=== PATIENT | female | born 1995 | race African-American/Black ===

== ENCOUNTER 2019-01-21 09:11 | Day surgery (SDC) | payer BC, OTHER ==
[~2019-01-21 09:11] MED LIST: LIDOCAINE 2% PF 5 ML VIAL. ONE; PROPOFOL 20 ML IV ONE; fentaNYL PF VIAL 100 MCG/2 ML VIAL ONE
[2019-01-21] MEDS ORDERED: ALBU2.5V8 INH (09:43)
[2019-01-21] MEDS ORDERED: ACETAMINOPHEN 500 MG TABLET PO ONE (10:00)
[2019-01-21] MEDS ORDERED: ceFAZolin 2GM PREMIX 2 GM/50 ML BAG IV ONE (10:00)
[2019-01-21] MEDS ORDERED: IV RINGERS,LACTATED 1000ML 1,000 ML IV SCH (10:00)
[2019-01-21] MEDS ORDERED: BUPIVACAINE-EPI 0.25%-1:200000 MPF 30 ML VIAL. INJ ONE (10:00)
[2019-01-21] MEDS ORDERED: DEXAMETHASONE SOD PHOS 4 MG/ML VIAL ONE (10:46)
[2019-01-21] MEDS ORDERED: ONDANSETRON PF 4 MG/2 ML VIAL. ONE (10:46)
[2019-01-21] MEDS ORDERED: SEVOFLURANE 16 TO 30 MINUTES. IH ONE (10:46)
[2019-01-21] MEDS ORDERED: PROPOFOL 20 ML IV ONE (10:50)
[2019-01-21] MEDS ORDERED: PHENYLEPHRINE in 0.9% NACL PF 1 MG/10 ML SYRINGE. IV ONE (10:54)
--- NOTE | 2019-01-21 11:15 | PDOC4 ---
Operative Note Operative Note Date: 01/21/2019 Preoperative diagnosis: Back abscess Postoperative diagnosis: Same Procedure: Incision and drainage of abscess Surgeon: Nir Specimen: Cultures Dictation: Patient is 23-year-old female complaining of a painful area on her mid back had previously been seen in emergency department where she had an incision and drainage done a couple days ago but has been getting worse since that time. Procedure of incision and drainage was explained to the patient detail risk benefits were also discussed including bleeding infection alternatives to this procedure also discussed with the patient who seemed to understand and gave both verbal and written consent to have the procedure performed per patient was taken to the operating room placed in supine position general anesthesia was initiated once patient was sleep and intubated she was placed and right decubitus positioning area on her left back was prepped and draped usual sterile fashion using ChloraPrep and area was incised with 11 blade scalpel copious metastases. Material were expressed proximally 20 mL wound was then irrigated with saline. The wound was then packed with quarter inch iodoform Nu Gauze and dressed with 4 x 4 and Medipore tape cultures were taken of the purulent material. Patient was awakened and asked bated operating room taken to recovery in stable condition all sponge needle counts listed as correct estimated blood loss 5 mL PAMELA BRYSON MD Jan 21, 2019 11:15
--- NOTE | 2019-01-21 11:17 | DISCH ---
DISCHARGE INSTRUCTIONS Condition on Discharge Condition on Discharge: Stable Activity After Discharge Activity Instructions for Disc: Activity as tolerated Diet after Discharge Diet after Discharge: Regular Wound Incision Care Other wound/incision instructi: change packing daily Contacting the [facility] after DC Call your doctor for: If your condition worsens Follow-Up Follow up with: Dr. Bryson in 1 week PAMELA BRYSON MD Jan 21, 2019 11:17
[2019-01-21] MEDS ORDERED: HYDR-3164 PO (11:32)
[2019-01-21] MEDS ORDERED: SULF1TAB24 PO (11:33)
[2019-01-21] MEDS ORDERED: HYDROcodone/APAP 5/325MG 1 TAB TABLET ONE (11:43)
[2019-01-21] MEDS ORDERED: HYDROcodone/APAP 5/325MG 1 TAB TABLET PO ONE (11:45)
[2019-01-21 11:50] VITALS: BP 119/62
== END 2019-01-21 12:20 | disposition home or self-care (01) ==
LOC: SURG 09:11
PROVIDERS: ATTEND Surgery
DX: L02.212 Cutaneous abscess of back [any part, except buttock and flank] (principal); G43.909 Migraine, unspecified, not intractable, without status migrainosus; K31.9 Disease of stomach and duodenum, unspecified; F41.9 Anxiety disorder, unspecified; E66.01 Morbid (severe) obesity due to excess calories; Z68.41 Body mass index [BMI] 40.0-44.9, adult; Z72.89 Other problems related to lifestyle; Z87.39 Personal history of other diseases of the musculoskeletal system and connective tissue
CPT/HCPCS: 10060; 81025; 87071; 87075; A7015; J0696; J1100; J2001; J2370; J2405; J2704; J3010

== ENCOUNTER 2020-12-01 12:54 | Emergency (ER) | payer SELFPAY ==
[~2020-12-01] VITALS: Ht 154.9 cm; Wt 108.2 kg
[~2020-12-01 12:54] MED LIST changes: +ALBU2.5V8 INH; +HYDR-3164 PO; -LIDOCAINE 2% PF 5 ML VIAL. ONE; -PROPOFOL 20 ML IV ONE; +SULF1TAB24 PO; -fentaNYL PF VIAL 100 MCG/2 ML VIAL ONE
[2020-12-01] MEDS ORDERED: IBUPROFEN 200 MG TABLET. PO ONE (15:30)
[2020-12-01] MEDS ORDERED: ACETAMINOPHEN 500 MG TABLET PO ONE (15:30)
[2020-12-01 16:12] LABS: BILIRUBIN,URINE SMALL (NEG); COLOR,URINE YELLOW; NITRITE,URINE NEGATIVE (NEG); PH,URINE 6.5 (<5.0-8.0); PROTEIN,URINE 100 mg/dL (NEG-TRACE)
[2020-12-01 16:18] LABS: CLARITY,URINE CLEAR
[2020-12-01 16:21] LABS: BACTERIA,URINE FEW /HPF (0-FEW); RBC,URINE 0 /HPF (0-2)
--- NOTE | 2020-12-01 16:47 | RAD ---
Exam: Chest one view INDICATION: Covid positive with cough TECHNIQUE: Frontal view of the chest Comparisons: None FINDINGS: The cardiomediastinal silhouette and pulmonary vessels are within normal limits. Extensive patchy by lateral airspace disease. No pleural effusion. IMPRESSION: Extensive patchy bilateral airspace disease Electronically signed by: Artem Peña MD (12/01/2020 4:44 PM) CEE
--- NOTE | 2020-12-01 17:19 | PHYS DOC ---
Past Medical History Past Medical History: Asthma Past Surgical History: Other Additional Past Surgical Histo: back surgery Smoking Status: Never Smoker Alcohol Use: Occasionally Drug Use: None General Adult EDM: Chief Complaint: FLU SYMPTOM HPI: HPI: Patient is a 25 year old female presents to the emergency department complaining of ongoing cough with fevers and chills after being diagnosed with a Covid virus this past Friday. Patient states she does want something to help her feel better. Patient denies chest pain, nausea, vomiting, diarrhea, or constipation. Patient reports she has not been taking any Tylenol and/or Motrin for her fevers or chills at home. Patient denies any other physical complaints or physical concerns. Review of Systems: Review of Systems: 14 body systems of review of systems have been reviewed. See HPI for pertinent positives and negative responses, otherwise all other systems are negative, nonpertinent or noncontributory. Constitutional: Negative except as outlined in HPI above. Skin: Negative except as outlined in HPI above. Eyes: Negative except as outlined in HPI above. HENT: Negative except as outlined in HPI above. Respiratory: Negative except as outlined in HPI above. Cardiovascular: Negative except as outlined in HPI above. GI: Negative except as outlined in HPI above. : Negative except as outlined in HPI above. Musculoskeletal: Negative except as outlined in HPI above. Integument: Negative except as outlined in HPI above. Neurologic: Negative except as outlined in HPI above. Endocrine: Negative except as outlined in HPI above. Lymphatic: Negative except as outlined in HPI above. Psychiatric: Negative except as outlined in HPI above. Heart Score: C/O Chest Pain: No Risk Factors: Risk Factors: DM, Current or recent (<one month) smoker, HTN, HLP, family history of CAD, obesity. Risk Scores: Score 0 - 3: 2.5% MACE over next 6 weeks - Discharge Home Score 4 - 6: 20.3% MACE over next 6 weeks - Admit for Clinical Observation Score 7 - 10: 72.7% MACE over next 6 weeks - Early Invasive Strategies Current Medications: Current Medications Medications (Trade) Dose Ordered Sig/Jesús Start Time Stop Time Status Last Admin Dose Admin Acetaminophen (Tylenol) 1,000 mg 1X ONCE 12/01/20 15:30 12/01/20 15:31 DC 12/01/20 15:30 1,000 MG Ibuprofen (Motrin) 600 mg 1X ONCE 12/01/20 15:30 12/01/20 15:31 DC 12/01/20 15:30 600 MG Allergies: Allergies: Allergies Coded Allergies Type Severity Reaction Last Updated Verified cashew nut Allergy Severe Anaphylaxis 12/01/20 Yes peanut Allergy Severe anaphylaxis 12/01/20 Yes pistachio nut Allergy Severe Anaphylaxis 12/01/20 Yes shellfish derived Allergy Severe Anaphylaxis 01/21/19 Yes I S O L A T I O N *CONTACT* Allergy Unknown 01/26/19 Yes Physical Exam: PE: Constitutional: Well developed, well nourished, no acute distress, non-toxic appearance. 25-year-old female in no apparent distress. HENT: Normocephalic, atraumatic. Eyes: Conjunctiva normal, no discharge. Neck: Normal range of motion, no stridor. Cardiovascular: No cyanosis appreciated, distal cap refill less than 2 seconds. Heart rate tachycardic during physical exam, rate 102 bpm. Lungs & Thorax: Patient is in no respiratory distress, no audible adventitious lung sounds appreciated. Lung sounds clear to auscultate all lung harrison. Patient's O2 sat 99% on room air. Abdomen: Nontender, no abnormalities noted. Skin: Warm, dry, no erythema, no rash. Back: No tenderness, no deformities. Extremities: No tenderness, no cyanosis, no clubbing, ROM intact, no edema. Neurologic: Alert and oriented X 3, normal motor function, normal sensory function, no focal deficits noted. Psychologic: Affect normal, judgement normal, mood normal. Current Patient Data: Labs: Laboratory Tests Test 12/01/20 15:51 12/01/20 16:07 Urine Collection Type Unknown Urine Color Yellow Urine Clarity Clear Urine pH 6.5 (<5.0-8.0) Urine Specific [place] 1.020 (1.000-1.030) Urine Protein 100 mg/dL (NEG-TRACE) Urine Glucose (UA) Negative mg/dL (NEG) Urine Ketones (Stick) >=80 mg/dL (NEG) Urine Blood Negative (NEG) Urine Nitrite Negative (NEG) Urine Bilirubin Small (NEG) Urine Urobilinogen Dipstick 1.0 mg/dL (0.2 mg/dL) Urine Leukocyte Esterase Negative (NEG) Urine RBC 0 /HPF (0-2) Urine WBC 5-10 /HPF (0-4) Urine Squamous Epithelial Cells Mod /LPF Urine Bacteria Few /HPF (0-FEW) Urine Mucus Mod /LPF POC Urine HCG, Qualitative Hcg negative (Negative) Vital Signs: Vital Signs Date Time Temp Pulse Resp B/P (MAP) Pulse Ox O2 Delivery O2 Flow Rate FiO2 12/01/20 14:15 102.4 108 28 133/61 (81) 93 Room Air 102.4 EKG: EKG: EKG performed at 1424 by ED nursing staff shows a sinus tachycardia without other ectopy heart rate 107 bpm, PA interval 0.116, QTc interval 0.421, no acute STEMI, no ACS, no acute ischemia appreciated, EKG interpreted by ED attending physician Dr. Hayes Radiology/Procedures: Radiology/Procedures: PATIENT: GENE HANNAH LACCOUNT: [id number] : 1995 LOCATION: ER AGE: 25 SEX: F EXAM STATUS: REG ER ORD. PHYSICIAN: GHASSAN RENEE APRN REASON: COVID POSTITVE WITH COUGH PROCEDURE: CHEST AP ONLY Exam: Chest one view INDICATION: Covid positive with cough TECHNIQUE: Frontal view of the chest Comparisons: None FINDINGS: The cardiomediastinal silhouette and pulmonary vessels are within normal limits. Extensive patchy by lateral airspace disease. No pleural effusion. IMPRESSION: Extensive patchy bilateral airspace disease Electronically signed by: Artem Peña MD (12/01/2020 4:44 PM) [facility] Course & Med Decision Making: Course & Med Decision Making Pertinent Labs and Imaging studies reviewed. (See chart for details) 25-year-old female, vital signs reviewed, presents emergency department complaining of ongoing COVID-19 virus symptoms. Physical examination consistent with COVID-19 virus patient. Order chest x-ray to evaluate for atypical pneumonia, patient has not hypoxic, patient is in no apparent distress. Patient's oral temperature 102.9 upon arrival by ED triage, during physical examination patient's oral temperature 101.1, will give Tylenol and Motrin p.o. Patient's chest x-ray concerning for atypical pneumonia, will draw basic labs to rule out systemic infectious process. Patient CBC and CMP unremarkable, patient's lactic acid within normal limits, patient was treated with 500 mg IV Zithromax while in ED. Discussed findings with patient, will send patient home with oral regimen of Zithromax, recommended [id number] Tylenol Motrin for returning fevers, chills, body aches and pains. Discussed with patient increasing fluid intake during her COVID-19 virus symptoms. Patient is amenable to ED discharge planning. Discussed with the patient all findings and diagnostic testing as well as the need to follow-up with their primary care provider for further evaluation and treatment or return to the ED if any new or worsening symptoms. Strict return precautions were also discussed at length, the patient voiced understanding and agreement with the discharge planning. The patient was nontoxic in appearance, in no apparent distress, and hemodynamically stable at the time of disposition. Dragon Disclaimer: Dragon Disclaimer: This electronic medical record was generated, in whole or in part, using a voice recognition dictation system. Departure Departure Impression: Primary Impression: Atypical pneumonia Additional Impression: COVID-19 virus infection Disposition: HOME / SELF CARE / HOMELESS Condition: GOOD Referrals: GHASSAN CAMPBELL MD (PCP) Patient Instructions: Pneumonia, Adult Additional Instructions: You were seen in emergency department today for COVID-19 virus symptoms. A extensive cardiorespiratory work-up was performed today, your heart is not under any stress that would require admission to the hospital, your chest x-ray did reveal an atypical pneumonia in which you were treated today with an IV antibiotic called Zithromax. Your blood lab work did not show any concerning findings that would warrant admission to the hospital today. Therefore I am sending you home with a prescription for Zithromax antibiotic to treat your pneumonia. As we discussed at length, please increase your fluid intake during your COVID-19 virus symptoms and infection. Please return the emergency department for worsening symptoms or other concerns. Thank you for visiting our Emergency Department. It was a pleasure taking care of you today in the emergency department and we appreciate you trusting us with your care. If any additional problems come up don't hesitate to return to visit us. Please follow up with your primary care provider so they can plan additional care if needed and know about the problem that you had. If symptoms worsen come back to the Emergency Department. Any concerning symptoms that start such as chest pain, shortness of air, weakness or numbness on one side of the body, running high fevers or any other concerning symptoms return to the ER. EMERGENCY DEPARTMENT GENERAL DISCHARGE INSTRUCTIONS Thank you for coming to [facility] Emergency Department (ED) today and trusting us with you care. We trust that you had a positive experience in our Emergency Department. If you wish to speak to the department management, you may call the Director at [phone]. YOUR FOLLOW UP INSTRUCTIONS ARE FOLLOWS: 1. Do you have a private Doctor? If you do not have a private doctor, please ask for a resource list of physicians or clinics that may be able to assist you with follow up care. 2. The Emergency Physicain has interpreted your x-rays. The X-Ray specialist will also review them. If there is a change in the findings, you will be notified in 48 hours when at all possible. 3. A lab test or culture has been done, your results will be reviewed and you will be notified if you need a change in treatment. ADDITIONAL INSTRUCTIONS AND INFORMATION: 1. Your care today has been supervised by a physician who is specially trained in emergency care. Many problems require more than one evaluation for a complete diagnosis and treatment. We recommend that you schedule your follow up appointment as recommended to ensure complete treatment of you illness or injury. If you are unable to obtain follow up care and continue to have a problem, or if your condition worsens, we recommend that you return to the ED. 2. We are not able to safely determine your condition over the phone nor are we able to give sound medical advice over the phone. For these safety reasons, if you call for medical advice we will ask you to come to the ED for further evaluation. 3. If you have any questions regarding these discharge instructions please call the ED at [phone]. SAFETY INFORMATION: In the interest of safety, wellness, and injury prevention; we encourage you to wear your sealbelt, if you smoke; quite smoking, and we encourage family to use a protective helmet for bicycling and other sporting events that present an increased risk for head injury. IF YOUR SYMPTOMS WORSEN OR NEW SYMPTOMS DEVELOP, OR YOU HAVE CONCERNS ABOUT YOUR CONDITION; OR IF YOUR CONDITION WORSENS WHILE YOU ARE WAITING FOR YOUR FOLLOW UP APPOINT MENT; EITHER CONTACT YOUR PRIMARY CARE DOCTOR, THE PHYSICIAN WHOSE NAME AND NUMBER YOU WERE GIVEN, OR RETURN TO THE ED IMMEDIATELY. You have been tested for or diagnosed with COVID-19. It is an infection caused by a new type of coronavirus. COVID-19 will cause cold-like or mild flu symptoms in most. It can cause more severe symptoms like problems breathing in some. There is no treatment for COVID-19. The body will clear the infection over time. Self-care will help to ease discomfort. Steps to Take: Self-Care Rest as needed. Healthy habits may help you feel better. Steps include: Choose healthy foods including fruits and vegetables. Drink water throughout the day. Get plenty of sleep each night. If you smoke, try to quit. It may ease breathing. Avoid alcohol. Keep Others Healthy The virus can spread to others. Droplets are released every time you sneeze or cough. The droplets can get into the mouth, nose, or eyes of people near you and lead to infection. To lower the chances of spreading COVID-19 to others: Stay at home until your doctor has said it is safe to leave. If you tested positive this will mean staying isolated until both of the following are true: At least 7 days have passed since the start of illness. You are free of fever for at least 72 hours without the use of medicine. During this time: - Avoid public areas, events, or transportation. Do not return to work or school until your doctor has said it is safe to do so. - Call ahead if you need to go to a medical center. Let them know you may have COVID-19. It will help them guide you where to go. They may also ask you to wear a facemask when you come to the office. - If you call for emergency medical services, let them know you may have COVID- 19. While at home: - Try to avoid close contact with others. Stay about 6 feet away. - If possible, spend most of your time in a separate room from others. - Use a face mask if you will be in close contact with others such as sharing a room or vehicle. - Have someone wipe down common surfaces in the home. Use household edge banding machine offbearer every day on areas like doorknobs, counters, or sinks. - Cough or sneeze into a tissue. Throw the tissue away right after use. If a tissue is not available, cough or sneeze into your elbow. - Wash your hands often. Wash them after sneezing or coughing. Use soap and water and wash for at least 20 seconds. Alcohol based hand vat cleaner can be used if soap and water is not available. - Do not prepare food for others. Avoid sharing personal items like forks, spoons, or toothbrushes. - Avoid close contact with pets while you are sick. There is no evidence of the virus passing to pets. This is a safety step until more is known about this virus. Isolation can be frustrating. Social interaction can help. Keep in touch with friends and family through phone and tech options. You can still interact with others in your home, just keep a safe distance of about 6 feet. Follow-up: Your doctors office will check in with you to see if there are any changes in your health. You may be asked to keep track of symptoms to share with them. They will also let you know when you are clear to be in public again. Problems to Look Out For: Contact your doctor if your recovery is not going as you expect. Get emergency care if you have problems such as: - Trouble breathing - Nonstop chest pain or pressure - Changes in awareness, confusion, or problems waking - Lips or face have bluish color - Worsening of symptoms If you think you have an emergency, call for emergency medical services right away. As taken from [facility] Ondansetron (ONDANSETRON ODT) 4 Mg Tab.rapdis 1 TAB PO PRN Q6-8HRS for nausea, #16 TAB 0 Refills Prov: GHASSAN RENEE APRN 12/01/20 Azithromycin (ZITHROMAX) 250 Mg Tablet 1 PKG PO UD for atypical pneumonia, #6 TAB 0 Refills Prov: GHASSAN RENEE APRN 12/01/20 GHASSAN RENEE APRN Dec 01, 2020 17:19
--- NOTE | 2020-12-01 17:36 | EKG ---
[facility] [address] [place] [address] Test Date: 2020-12-01 Test Time: 14:24:46 Pat Name: GENE HANNAH Department: Room: Gender: F Admitted Attorneys: : 1995 Requested By: GHASSAN RENEE Order Number: [id number] Reading MD: Measurements Intervals [place] Rate: 107 P: 38 LA: 116 QRS: 34 QRSD: 60 T: 54 QT: 316 QTc: 421 Interpretive Statements SINUS TACHYCARDIA OTHERWISE NORMAL ECG RI6.02 No previous ECG available for comparison
[2020-12-01] MEDS ORDERED: AZITHRMYCN 500MG IVPB FOR OMNI 250 ML IV ONE (18:15)
[2020-12-01] MEDS ORDERED: IV NORMAL SALINE 1000ML BAG 1,000 ML IV ONE (18:30)
[2020-12-01 18:48] LABS: BASO % 0 % (0-3); EOS % 0 % (0-3); HEMATOCRIT 39.8 % (36.0-47.0); HEMOGLOBIN 13.6 g/dL (12.0-15.5); LYMPH # 0.5 x10^3/uL (1.0-4.8); LYMPH % 10 % (24-48); MEAN CORPUSCULAR HEMOGLOBIN 28 pg (25-35); MEAN CORPUSCULAR HGB CONC 34 g/dL (31-37); MEAN CORPUSCULAR VOLUME 82 fL (79-100); MONO # 0.4 x10^3/uL (0.0-1.1); MONO % 8 % (0-9); NEUT # 4.5 x10^3/uL (1.8-7.7); NEUT % 82 % (31-73); PLATELET COUNT 170 x10^3/uL (140-400); RED BLOOD COUNT 4.84 x10^6/uL (3.50-5.40); RED CELL DISTRIBUTION WIDTH 13.8 % (11.5-14.5); WHITE BLOOD COUNT 5.5 x10^3/uL (4.0-11.0)
[2020-12-01 19:00] LABS: CALCIUM 8.5 mg/dL (8.5-10.1); CREATININE 1.2 mg/dL (0.6-1.0); GFR 65.7; POTASSIUM 3.9 mmol/L (3.5-5.1)
[2020-12-01 19:15] LABS: ALBUMIN 2.6 g/dL (3.4-5.0); ALBUMIN/GLOBULIN RATIO 0.7 (1.0-1.7); TOTAL BILIRUBIN 0.3 mg/dL (0.2-1.0); TOTAL PROTEIN 6.3 g/dL (6.4-8.2)
[2020-12-01 20:15] VITALS: BP 114/61
[2020-12-01] MEDS ORDERED: ONDA4TAB12 PO (21:04)
[2020-12-01] MEDS ORDERED: AZIT250T PO (21:04)
== END 2020-12-01 21:24 | disposition home or self-care (01) ==
LOC: ER 12:54
DX: U07.1 COVID-19 (principal); J12.82 Pneumonia due to coronavirus disease 2019; J45.909 Unspecified asthma, uncomplicated; Z91.010 Allergy to peanuts; Z91.018 Allergy to other foods; Z91.041 Radiographic dye allergy status; Z91.013 Allergy to seafood
CPT/HCPCS: 36415; 71045; 80053; 81001; 81025; 82553; 83605; 84484; 85025; 87040; 87086; 93005; 96365; 96366; 99285; J0456; J7030

== ENCOUNTER 2021-04-12 20:48 | Emergency (ER) | payer SELFPAY ==
[~2021-04-12] VITALS: Ht 162.6 cm; Wt 127.0 kg
[~2021-04-12 20:48] MED LIST changes: +APIX5TAB PO; +AZIT250T PO; +HYDR-2761 PO; +ONDA4TAB12 PO
[2021-04-12 21:00] VITALS: BP 140/86
[2021-04-12] MEDS ORDERED: KETOROLAC 30 MG/ML VIAL. IVP ONE (22:00)
[2021-04-12] MEDS ORDERED: IV NORMAL SALINE 1000ML BAG 1,000 ML IV ONE (22:00)
--- NOTE | 2021-04-12 22:20 | PHYS DOC ---
Past Medical History Past Medical History: Asthma Additional Past Medical Histor: PE Past Surgical History: Other Additional Past Surgical Histo: Back surgery Smoking Status: Never Smoker Alcohol Use: Occasionally Drug Use: None Adult General Chief Complaint Chief Complaint: MULTIPLE COMPLAINTS HPI HPI The patient is a 25-year-old female who presents for evaluation of left lower quadrant abdominal pain, focal, sharp and nonradiating, with onset about 2 weeks ago. Discomfort is constant, worse with palpation and nothing seems to make it better. Severity about 6 out of 10 at present. She is concerned that her abdominal pain is due to a Covid infection and would like to be tested. Patient had a urinalysis done at another hospital at some point within the last week; urinalysis evidently revealed evidence of infection and the patient was told that she had a kidney infection and placed on an antibiotic. She states she never had any UTI symptoms. Patient denies fevers, nausea or vomiting, upper respiratory congestion/rhi norrhea, cough, sore throat, headache, focal or lateralizing weakness, numbness or tingling, neck stiffness/pain/meningismus, vision changes, shortness of breath or chest pain of any kind, right-sided or upper abdominal pain of any kind, flank pain, midline back pain, dysuria, hematuria, polyuria or oliguria, unusual vaginal discharge or bleeding (last menstrual period was a couple of weeks ago and was "light" per patient), changes in bowel habits aside from mild constipation over the past few days. Vital signs are appropriate here in the patient is in absolutely no acute distress. Review of Systems Review of Systems A 12 point review of systems was completed and was negative except for noted in HPI above. Current Medications Current Medications Current Medications Medications (Trade) Dose Ordered Sig/Jesús Start Time Stop Time Status Last Admin Dose Admin Ketorolac Tromethamine (Toradol 30mg Vial) 30 mg 1X ONCE 04/12/21 22:00 04/12/21 22:01 DC Sodium Chloride 1,000 ml @ 1,000 mls/hr 1X ONCE 04/12/21 22:00 04/12/21 22:59 Allergies Allergies Allergies Coded Allergies Type Severity Reaction Last Updated Verified cashew nut Allergy Severe Anaphylaxis 12/01/20 Yes peanut Allergy Severe anaphylaxis 12/01/20 Yes pistachio nut Allergy Severe Anaphylaxis 12/01/20 Yes shellfish derived Allergy Severe Anaphylaxis 10/10/19 Yes I S O L A T I O N *CONTACT* Allergy Unknown 01/26/19 Yes Physical Exam Physical Exam 25-year-old female appearing nontoxic and in no acute distress. Head is normocephalic and atraumatic. Neck is supple and nontender. No stiffness/rigidity/meningismus seen and patient ranges neck fully in all dimensions without discomfort or distress. Oropharynx is moist. Lungs are clear to auscultation at all stations. There is a normal S1 and S2 without rubs or gallops and capillary refill is appropriate, less than 2 seconds globally. Abdomen is soft, nondistended and with mild focal left lower quadrant tenderness to palpation without rebound or guarding. Skin is warm and dry and without cyanosis, clubbing or edema. Psychiatrically, the patient demonstrates appropriate mood and affect and is alert. Neurologically, cranial nerves II through XII are intact and there are no lateralizing deficits seen. Speech is normal. Language is normal. Coordination is normal. There is no dysmetria [id number] or [id number] bilaterally. Strength is 5-5 in all joints of bilateral upper and lower extremities. Sensation is intact light touch in bilateral upper and lower extremities. Patient ambulates with a narrow, steady, non-ataxic gait here in the emergency department and is alert and oriented x4. Current Patient Data Vital Signs Vital Signs Date Time Temp Pulse Resp B/P (MAP) Pulse Ox O2 Delivery O2 Flow Rate FiO2 04/12/21 21:00 98.6 74 16 140/86 (104) 98 Room Air 98.6 EKG EKG [] Radiology/Procedures Radiology/Procedures Well-appearing 25-year-old female presenting for 2 weeks of left lower quadrant abdominal pain. Currently being treated for "a kidney infection" with an unknown antibiotic. Only testing done to arrive at that diagnosis was UA. Patient is concerned that her left lower quadrant abdominal pain may be Covid. I counseled her that her symptoms are not consistent with COVID-19 infection but that I would be glad to swab her for Covid. I recommended abdominal labs, urinalysis, testing and a CT scan of the abdomen and pelvis to further evaluate her abdominal pain. Patient was in agreement with that plan. 2200: Nursing informed me that the patient is now refusing evaluation, stating she only wants the Covid test and does not want her belly pain further explored. She has been counseled, and understands, that she is at risk for decompensation, permanent disability, loss of current lifestyle and even in choosing to decline indicated evaluation. She is able to restate those risks in her own words and agrees to be wholly and solely responsible for them in their entirety. Even though she has chosen to leave against advice I have counseled her regarding next steps in care including close follow-up with primary care and return to the emergency department for indicated abdominal pain evaluation if she changes her mind. All questions answered. AMA form signed and placed in the chart. Course & Med Decision Making Course & Med Decision Making Pertinent Labs and Imaging studies reviewed. (See chart for details) [] Dragon Disclaimer Dragon Disclaimer This electronic medical record was generated, in whole or in part, using a voice recognition dictation system. Departure Departure Impression: Primary Impression: Left lower quadrant abdominal pain Disposition: LEFT AGAINST MEDICAL ADVICE Referrals: GHASSAN CAMPBELL MD (PCP) TATE LIN MD Apr 12, 2021 22:20
== END 2021-04-12 22:15 | disposition left against medical advice (07) ==
LOC: ER 20:48
DX: R10.32 Left lower quadrant pain (principal); J45.909 Unspecified asthma, uncomplicated; Z91.041 Radiographic dye allergy status; Z91.010 Allergy to peanuts; Z91.018 Allergy to other foods; Z91.013 Allergy to seafood
CPT/HCPCS: 99283; U0003; U0005; 99281